=== PATIENT | female | born 1945 | race Caucasian/White ===

== ENCOUNTER 2016-08-19 11:16 | Emergency (ER) | payer OTHER, MEDICAID ==
[2016-08-19 11:23] VITALS: BMI 36.6
[2016-08-19 11:26] VITALS: BP 170/87
--- NOTE | 2016-08-19 12:25 | DR.GENAD ---
HPI - PCP Primary Care Physician: Haleigh ([place], [place]) - Complaint/Symptoms Chief Complaint Doctors Comments: Reviewed complaint agree with statement Chief Complaint:: pt states her left knee popped as she was getting out of the bathtub last night. She is unable to put weight on that leg. - Source History Provided: Patient - Mode of Arrival Mode of Arrival: Wheelchair - Timing Onset of Chief Complaint: 08/18/16 PMH - PMH Past Medical History: Yes Past Medical History: Hypothyroidism Past Medical History Comment: Hiatal hernia Past Surgical History: Yes Surgical History: Appendectomy, Hysterectomy, Ortho Surgery - Family History History of Family Medical Conditions: Yes Family Medical History: Diabetes Mellitus, Cancer, [place], Hypertension - Social History Does patient currently use any type of tobacco product: No Have you used tobacco products in the last 12 months: No Type of Tobacco Use: None Does any household member use tobacco: No Alcohol Use: None Do you use any recreational Drugs:: No Lives With: Family - infectious screening In the last 2 months have you had wt loss of >10#?: NO Have you had fever, night sweats or hemotysis?: No Have you traveled outside the country in the last 6 months?: No Isolation: Standard ROS - Review of Systems Eyes: No Symptoms Reported ENTM: No Symptoms Reported Respiratoy: No Symptoms Reported Cardiovascular: No Symptoms Reported Gastrointestinal/Abdominal: No Symptoms Reported Genitourinary: No Symptoms Reported Neurological: No Symptoms Reported Musculoskeletal: Knee (left knee) Integumentary: No Symptoms Reported Hematologic/Lymphatic: No Symptoms Reported Endocrine: No Symptoms Reported Psychiatric: No Symptoms Reported All Other Systems: Reviewed and Negative PE - Vital Signs Vitals: Temperature 97.7 F Pulse Rate 71 Respiratory Rate 16 Blood Pressure 170/87 O2 Sat by Pulse Oximetry 98 - General Limitations: No Limitations General Appearance: Alert, In No Apparent Distress, Anxious - Head Head Exam: Normal Inspection, Atraumatic - Eyes Eye exam: Normal Appearance, PERRL, EOMI - ENT ENT Exam: Normal Exam, Normal Oropharynx External Ear Exam: Normal External Inspection TM/Canal Exam: Bilateral Normal Nose Exam: Normal Nose Exam Mouth Exam: Normal Inspection Throat Exam: Normal Inspection - Neck Neck Exam: Normal Inspection - Chest Chest Inspection: Normal Inspection - Respiratory Respiratory Exam: Normal Lung Sounds Bilat Respiratory Exam: Bilateral Clear to Auscultation - Cardiovascular Cardiovascular Exam: Regular Rate, Normal Rhythm - Abdominal Exam Abdominal Exam: Normal Inspection, Normal Bowel Sounds Abdominal Tenderness: negative: RUQ, RLQ, LUQ, LLQ, Epigastrium, Suprapubic, Diffuse, Mild, Moderate, Severe, Other - Extremities Extremities Exam: Normal Inspection, Full ROM, Tenderness (left knee tenderness) - Back Back Exam: Normal Inspection - Neurologic Neurological Exam: Alert, Oriented X3, CN II-XII Intact - Psychiatric Psychiatric Exam: Normal Affect, Depressed - Skin Skin Exam: Warm, Dry, Intact ROR - XRAY XRAY Interpreted by: Radiologist (Knee: No acute traumatic abnormality, osteopenia, mild degenerative joint disease) - Diagnosis Discharge Problem: Degenerative joint disease of knee, left Qualifiers: Osteoarthritis type: primary Qualified Code(s): M17.12 - Unilateral primary osteoarthritis, left knee - Discharge Plan Condition: Stable - Follow ups/Referrals Follow ups/Referrals: NFD,None [Primary Care Provider] - 3 days - Instructions
--- NOTE | 2016-08-19 13:01 | RAD ---
HISTORY: Left knee pain, nontraumatic Study: Left knee three view Comparison: None Findings: The bones are osteopenic. There is no evidence for acute bone or acute joint abnormality. No fractur e, lytic, or blastic lesion is identified. No joint erosion or joint effusion is present. No periart icular soft tissue abnormality is identified. There is mild degenerative joint disease in the form o f pointing of the tibial spines and mild patellofemoral joint space narrowing. IMPRESSION: No acute traumatic abnormality Osteopenia Mild degenerative joint disease Reported By:
== END 2016-08-19 14:10 | disposition home or self-care (01) ==
LOC: ER 11:45
DX: M17.12 Unilateral primary osteoarthritis, left knee (principal); M85.80 Other specified disorders of bone density and structure, unspecified site
CPT/HCPCS: 29530; 73564; 99282; 99283

== ENCOUNTER 2017-01-22 09:47 | Emergency (ER) | payer OTHER, MEDICAID ==
[2017-01-22] MEDS ORDERED: AFRIN NASAL SPRAY ONE (09:54)
[2017-01-22] MEDS ORDERED: AFRIN NASAL SPRAY ENOSTRIL ONE (10:00)
--- NOTE | 2017-01-22 10:24 | DR.NOSEBLE ---
HPI - Time Seen Time seen: 12:20 - HPI Comment HPI Comment: SPONTANEOUS NOSE BLEED NOTED FEW HOURS AGO. PASSING LARGE BLOOD CLOTS. SOME BLOOD IN THE MOUTH ALSO. - Complaints Chief Complaint Doctors Comments: NOSE BLEED - Reviewed Nurses Notes Reviewed: Yes - Source History Provided: Patient - Mode of Arrival Mode of Arrival: Ambulatory - Duration Bleeding: Currently Present Duration: Hours - Location Location: Right, N[place] - Severity Severity: Moderate Measure: Tablespoons Bleeding:: Uncontrolled - Associated Signs and Symptoms Associated Signs and Symptoms: None PMH - PMH Past Medical History: Hypothyroidism Past Surgical History: Yes Surgical History: Appendectomy, Hysterectomy, Ortho Surgery - Family History Family Medical History: Diabetes Mellitus, Cancer, [place], Hypertension - Social History Do you use any recreational Drugs:: No ROS - Review of Systems Constitutional: No Symptoms Reported Eyes: No Symptoms Reported ENTM: Epistaxis (RT NOSTRIL) Respiratoy: No Symptoms Reported. negative: Productive Cough, Non-Productive Cough, Wheezing, Hemoptysis Cardiovascular: No Symptoms Reported Gastrointestinal/Abdominal: No Symptoms Reported Genitourinary: No Symptoms Reported Neurological: No Symptoms Reported Musculoskeletal: No Symptoms Reported Integumentary: No Symptoms Reported Hematologic/Lymphatic: No Symptoms Reported Endocrine: No Symptoms Reported All Other Systems: Reviewed and Negative PE - Vital Signs Vitals: Temperature 99.1 F Pulse Rate 68 Respiratory Rate 16 Blood Pressure 166/86 O2 Sat by Pulse Oximetry 99 - General Limitations: No Limitations General Appearance: Alert - Head Head Exam: Normal Inspection - Eyes Eye exam: Normal Appearance, PERRL, EOMI. negative: Scleral Icterus, Conjunctival Injection, Periorbital Swelling, Periorbital Tenderness Eyelids: Normal Inspection: Bilateral Pupils: Regular, Round: Bilateral, Reactive: Bilateral Sclera/Conjunctival: Normal Inspection: Bilateral - ENT ENT Exam: Normal Exam, Normal Oropharynx, Normal External Ear Exam, TM's Normal Bilaterally External Ear Exam: Normal External Inspection TM/Canal Exam: Bilateral Normal Nasal Speculum Exam: Right Epistaxis Mouth Exam: Normal Inspection Throat Exam: Normal Inspection - Neck Neck Exam: Normal Inspection, Trachea Midline - Chest Chest Inspection: Symmetric Chest Wall Rise - Respiratory Respiratory Exam: Normal Lung Sounds Bilat Respiratory Exam: Bilateral Clear to Auscultation - Cardiovascular Cardiovascular Exam: Regular Rate, Normal Rhythm, Normal Heart Sounds - Abdominal Exam Abdominal Exam: Normal Bowel Sounds, Soft. negative: Tenderness - Extremities Extremities Exam: Normal Inspection - Back Back Exam: Normal Inspection - Neurologic Neurological Exam: Alert, Oriented X3, CN II-XII Intact, Normal Gait, Reflexes Normal. negative: Motor Sensory Deficit - Psychiatric Psychiatric Exam: Normal Affect, Normal Mood - Skin Skin Exam: Normal Color MDM - Additional Information Obtained Additional Information Obtained From: Family - Differential Diagnosis Differential Diagnosis: Posterior Nasal Bleed Course - Treatment Treatment: SEE ORDERS. OXYMETAZOLINE NASAL SPRAY APPLIED TO RT NOSTRIL IN ED. - Reevaluation 1st: Improved (NOSE BLED RESOLVED. NO NASAL PACKING APPLIED.) - Education/Counseling Education/Counseling: Patient, Family, Education Educated On: Diagnosis, Needs for Follow Up ROR - Labs Reviewed Laboratory Results Reviewed?: Yes Result Diagrams: 01/22/17 10:27 01/22/17 10: Laboratory: WBC 5.4 X10^3/uL (3.6-10.0) 01/22/17 10:27 RBC 4.72 X10^6/uL (3.5-5.4) 01/22/17 10:27 Hgb 13.8 g/dL (12.0-16.0) 01/22/17 10:27 Hct 40.3 % (36.0-47.0) 01/22/17 10:27 MCV 85.4 fL (80.0-100.0) 01/22/17 10:27 MCH 29.2 pg (27.0-34.0) 01/22/17 10:27 MCHC 34.3 g/dL (33.0-35.0) 01/22/17 10:27 RDW 14.0 % (11.6-16.5) 01/22/17 10:27 Plt Count 194 X10^3/uL (150.0-450.0) 01/22/17 10:27 MPV 8.2 fL (7.4-11.0) 01/22/17 10:27 Neut % 73.6 % (42.0-75.0) 01/22/17 10:27 Lymph % 18.7 % (21.0-51.0) L 01/22/17 10:27 Porter % 6.7 % (0.0-13.0) 01/22/17 10:27 Eos % 0.6 % (0.9-2.9) L 01/22/17 10:27 Baso % 0.4 % (0.2-1.0) 01/22/17 10:27 Neut # 4.0 x10^3/uL (2.2-4.8) 01/22/17 10:27 Lymph # 1.0 X10^3/uL (1.3-2.9) L 01/22/17 10:27 Porter # 0.4 x10^3/uL (0.3-0.8) 01/22/17 10:27 Eos # 0.0 x10^3/uL (0.0-0.2) 01/22/17 10:27 Baso # 0.0 X10^3/uL (0.0-0.1) 01/22/17 10:27 Absolute Nucleated RBC 0.0 /100WBC 01/22/17 10:27 INR Target Range - 01/22/17 10:27 INR 1.06 (0.8-1.3) 01/22/17 10:27 PTT 27.3 SECONDS (22.9-36.5) 01/22/17 10:27 PTT Comment - 01/22/17 10:27 Sodium 139 mmol/L (136-145) 01/22/17 10:27 Corrected Sodium TNP 01/22/17 10:27 Potassium 3.9 mmol/L (3.5-5.1) 01/22/17 10:27 Chloride 103 mmol/L (98-107) 01/22/17 10:27 Carbon Dioxide 31.7 mmol/L (21-32) 01/22/17 10:27 BUN 19 mg/dL (7-18) H 01/22/17 10:27 Creatinine 0.96 mg/dL (0.55-1.02) 01/22/17 10:27 Est GFR (MDRD) Af Amer > 60 (>60) 01/22/17 10:27 Est GFR (MDRD) Non-Af > 60 (>60) 01/22/17 10:27 Glucose 107 mg/dL (65-99) H 01/22/17 10:27 Calcium 9.0 mg/dL (8.5-10.1) 01/22/17 10:27 Corrected Calcium TNP 01/22/17 10:27 Total Bilirubin 0.30 mg/dL (0.2-1.0) 01/22/17 10:27 AST 18 Units/L (15-37) 01/22/17 10:27 ALT 18 Units/L (12-78) 01/22/17 10:27 Alkaline Phosphatase 67 Units/L (46-116) 01/22/17 10:27 Total Protein 7.1 g/dL (6.4-8.2) 01/22/17 10:27 Albumin 3.4 g/dL (3.4-5.0) 01/22/17 10:27 Globulin 3.7 g/dL (2.5-4.5) 01/22/17 10:27 Albumin/Globulin Ratio 0.9 Ratio (1.1-2.1) L 01/22/17 10:27 - Diagnosis Discharge Problem: Epistaxis Hypertension Qualifiers: Hypertension type: essential hypertension Qualified Code(s): I10 - Essential ( primary) hypertension - Discharge Plan Disposition: 01 HOME, SELF-CARE Condition: Stable - Follow ups/Referrals Follow ups/Referrals: NFD,None [Primary Care Provider] - 3 days - Instructions Instructions: Hemoptysis, Managing Your High Blood Pressure Additional Instructions: RETURN TO ED IF WORSE. SEE ENT DR CACERES.YOU HAVE RIGHT NOSE BLEED THAT SPONTANEOUSLY STOP WHILE IN THE EMERGENCY ROOM.
[2017-01-22 10:41] LABS: BASOPHILS % (AUTO) 0.4 % (0.2-1.0); EOSINOPHILS % (AUTO) 0.6 % (0.9-2.9); HEMATOCRIT 40.3 % (36.0-47.0); HEMOGLOBIN 13.8 g/dL (12.0-16.0); LYMPHOCYTES % (AUTO) 18.7 % (21.0-51.0); MEAN CORPUSCULAR HEMOGLOBIN 29.2 pg (27.0-34.0); MEAN CORPUSCULAR HGB CONC 34.3 g/dL (33.0-35.0); MEAN CORPUSCULAR VOLUME 85.4 fL (80.0-100.0); MEAN PLATELET VOLUME 8.2 fL (7.4-11.0); MONOCYTES # (AUTO) 0.4 x10^3/uL (0.3-0.8); MONOCYTES % (AUTO) 6.7 % (0.0-13.0); NEUTROPHILS % (AUTO) 73.6 % (42.0-75.0); PLATELET COUNT 194 X10^3/uL (150.0-450.0); RED BLOOD COUNT 4.72 X10^6/uL (3.5-5.4); WHITE BLOOD COUNT 5.4 X10^3/uL (3.6-10.0)
[2017-01-22 11:02] LABS: ALANINE AMINOTRANSFERASE 18 Units/L (12-78); ALBUMIN 3.4 g/dL (3.4-5.0); ALKALINE PHOSPHATASE 67 Units/L (46-116); ASPARTATE AMINO TRANSFERASE 18 Units/L (15-37); BLOOD UREA NITROGEN 19 mg/dL (7-18); CARBON DIOXIDE 31.7 mmol/L (21-32); CHLORIDE 103 mmol/L (98-107); CREATININE 0.96 mg/dL (0.55-1.02); SODIUM 139 mmol/L (136-145); TOTAL PROTEIN 7.1 g/dL (6.4-8.2); eGFR BLACK RACES > 60 (>60); eGFR NON BLACK RACES > 60 (>60)
[2017-01-22 11:30] VITALS: BP 166/86; BMI 39.9
== END 2017-01-22 12:10 | disposition home or self-care (01) ==
LOC: ER 09:47
DX: R04.0 Epistaxis (principal); I10 Essential (primary) hypertension
CPT/HCPCS: 36415; 80053; 85025; 85610; 85730; 99282